=== PATIENT | female | born 1945 | race Hispanic/Latino ===

== ENCOUNTER 2017-09-07 23:32 | Inpatient (IN) | payer OTHER ==
[2017-09-08 00:19] LABS: Absolute Lymphocytes (CBC) 1.1 K/uL (0.7-4.9); Absolute Monocytes 0.4 K/uL (0.1-1.3); Absolute Neutrophil 5.9 K/uL (1.8-8.0); MCH 30.1 pg (27.0-35.0); RBC Red Blood Cell Count 1.93 M/uL (3.86-4.86)
[2017-09-08 00:29] LABS: Basophils % 0.5 % (0-1.3); Eosinophils % 0.5 % (0-4.4); Lymphocytes % 14.6 % (15.3-44.8); MCV 91.5 fL (80-100); MPV 8.8 fL (7.6-11.3); Monocytes % 5.6 % (3.3-12.3)
[2017-09-08 00:31] LABS: Hematocrit 17.6 % (36.0-45.0)
[2017-09-08 00:40] LABS: ALT/SGPT 12 U/L (12-78); AST/SGOT 13 U/L (15-37); Albumin 2.9 g/dL (3.4-5.0); Alkaline Phosphatase 55 U/L (45-117); BUN Blood Urea Nitrogen 31 mg/dL (7-18); Bicarbonate 21 mmol/L (21-32); Bilirubin Direct < 0.1 mg/dL (0-0.2); Bilirubin Total 0.2 mg/dL (0.2-1.0); Glucose Level 191 mg/dL (74-106); Lipase 82 U/L (73-393); Potassium 4.3 mmol/L (3.5-5.1); Sodium Level 145 mmol/L (136-145)
[2017-09-08] MEDS ORDERED: NA CHLORIDE 0.9% 1,000 ML ONE (01:39)
[2017-09-08 01:54] LABS: Protime INR 1.07
[2017-09-08] MEDS ORDERED: NA CHLORIDE 0.9% 250 ML ONE (02:00)
--- NOTE | 2017-09-08 02:06 | EDPHYS ---
Physician Documentation [facility] Name: Cici Perez Age: 72 yrs Sex: Female : 1945 Arrival Date: 09/07/2017 Time: 23:44 Bed 7 Private MD: ED Physician Mono Carlos HPI: 09/08 01:54 This 72 yrs old Female presents to ER via EMS with unknown complaint. gs 01:54 The patient presents to the emergency department with rectal bleeding, a moderate gs amount. Onset: The symptoms/episode began/occurred yesterday. Abdominal pain: none is appreciated. Modifying factors: The symptoms are alleviated by nothing, the symptoms are aggravated by nothing. Associated signs and symptoms: Pertinent negatives: fever. Severity of symptoms: At their worst the symptoms were moderate in the emergency department the symptoms are unchanged. The patient has experienced similar episodes in the past, several times. The patient has been recently seen by a physician: colonoscopy last week has polyps cautery performed at [facility].. Historical: - Allergies: 09/07 23:50 Codeine; lp1 - Home Meds: 23:50 amlodipine 5 mg tab 1 tab once daily [Active]; docusate sodium 100 mg Oral cap 1 cap 2 lp1 times per day [Active]; aspirin 81 mg Oral chew 1 tab once daily [Active]; atorvastatin 80 mg Oral tab 1 tab nightly [Active]; cilostazol 100 mg oral tab daily [Active]; levocetirizine 5 mg oral tab 1 tab once daily [Active]; metoprolol tartrate 25 mg Oral tab 0.5 tab 2 times per day [Active]; - PMHx: 23:50 Diabetes - NIDDM; High Cholesterol; Hypertension; lp1 - PSHx: 23:50 Aneurysm repair; Hernia repair; Cholecystectomy; Appendectomy; lp1 - Immunization history:: Adult Immunizations up to date. - Social history:: Smoking status: Patient uses tobacco products, smokes one-half pack cigarettes per day. - Ebola Screening: : No symptoms or risks identified at this time. ROS: 09/08 01:59 All other systems are negative. gs Exam: 01:59 Head/Face: Normocephalic, atraumatic. Eyes: Pupils equal round and reactive to light, gs extra-ocular motions intact. Lids and lashes normal. Conjunctiva and sclera are non-icteric and not injected. Cornea within normal limits. Periorbital areas with no swelling, redness, or edema. ENT: Nares patent. No nasal discharge, no septal abnormalities noted. Tympanic membranes are normal and external auditory canals are clear. Oropharynx with no redness, swelling, or masses, exudates, or evidence of obstruction, uvula midline. Mucous membranes moist. Neck: Trachea midline, no thyromegaly or masses palpated, and no cervical lymphadenopathy. Supple, full range of motion without nuchal rigidity, or vertebral point tenderness. No Meningismus. Chest/axilla: Normal chest wall appearance and motion. Nontender with no deformity. No lesions are appreciated. Cardiovascular: Regular rate and rhythm with a normal S1 and S2. No gallops, murmurs, or rubs. Normal PMI, no JVD. No pulse deficits. Respiratory: Lungs have equal breath sounds bilaterally, clear to auscultation and percussion. No rales, rhonchi or wheezes noted. No increased work of breathing, no retractions or nasal flaring. Abdomen/GI: Soft, non-tender, with normal bowel sounds. No distension or tympany. No guarding or rebound. No evidence of tenderness throughout. Back: No spinal tenderness. No costovertebral tenderness. Full range of motion. Skin: Warm, dry with normal turgor. Normal color with no rashes, no lesions, and no evidence of cellulitis. MS/ Extremity: Pulses equal, no cyanosis. Neurovascular intact. Full, normal range of motion. Neuro: Awake and alert, GCS 15, oriented to person, place, time, and situation. Cranial nerves II-XII grossly intact. Motor strength 5/5 in all extremities. Sensory grossly intact. Cerebellar exam normal. Normal gait. 01:59 Constitutional: The patient appears alert, awake. Vital Signs: 09/07 23:47 BP 143 / 81; Pulse 88; Resp 18; Temp 98.4(O); Pulse Ox 100% on R/A; Weight 61.23 kg; lp1 Height 5 ft. 4 in. (162.56 cm); Pain 0/10; 09/08 01:03 BP 147 / 79; Pulse 81; Resp 14; Pulse Ox 99% on R/A; Pain 0/10; ao 02:20 BP 170 / 63; Pulse 86; Resp 18; Temp 98.8(TE); Pulse Ox 100% on R/A; Pain 0/10; ao 03:20 BP 159 / 79; Pulse 76; Resp 18; Temp 97.6(TE); Pulse Ox 100% on R/A; Pain 0/10; ao 09/07 23:47 Body Mass Index 23.17 (61.23 kg, 162.56 cm) lp1 MDM: 09/07 23:58 Patient medically screened. 09/08 01:59 Differential diagnosis: gastritis, diverticulitis, hemorrhoids, hemorrhagic shock. Data reviewed: vital signs, nurses notes. Response to treatment: the patient's symptoms have mildly improved after treatment, and as a result, I will admit patient. 02:06 ED course: discussed kathleen, pt wants to stay as her gi not available at [facility] [place]. 09/07 23:58 Order name: Basic Metabolic Panel; Complete Time: 01:57 09/07 23:58 Order name: CBC with Diff; Complete Time: 01:57 09/07 23:58 Order name: Hepatic Function; Complete Time: 01:57 09/07 23:58 Order name: Lipase; Complete Time: 01:57 09/07 23:58 Order name: Urine Microscopic Only 09/07 23:58 Order name: Type And Screen 09/08 01:06 Order name: PT-INR 09/08 01:07 Order name: Protime (+INR); Complete Time: 01:57 [facility] 09/08 01:14 Order name: ABO/RH no charge; Complete Time: 01:57 [facility] 09/08 01:15 Order name: Packed RBC Leukored -1 EDKY 09/08 01:57 Order name: CT Stone Protocol 09/07 23:58 Order name: IV Saline Lock; Complete Time: 00:56 09/07 23:58 Order name: Labs collected and sent; Complete Time: 00:56 Administered Medications: 01:53 Drug: NS 0.9% 1000 ml Route: IV; Rate: 125 ml/hr; Site: right forearm; ao 04:39 Follow up: IV Status: Infusion continued upon admission ao 02:16 Drug: Zofran 4 mg Route: IVP; Site: right forearm; ao 04:39 Follow up: Response: No adverse reaction ao 02:20 Drug: fentaNYL (PF) 25 mcg Route: IVP; Site: right forearm; ao 04:39 Follow up: Response: No adverse reaction; Pain is decreased ao Disposition: 09/08/17 02:05 Hospitalization ordered by Roney Mckinney for Inpatient Admission. Preliminary diagnosis is Gastrointestinal hemorrhage, unspecified. - Bed requested for Telemetry/MedSurg (Inpatient). - Status is Inpatient Admission. ao - Condition is Stable. - Problem is new. - Symptoms are unchanged. UTI on Admission? No Critical care time excluding procedures: 02:06 Critical care time: Bedside Care: 10 minutes, Consultation: 10 minutes, Family gs Intervention: 10 minutes. Total time: 30 minutes Signatures: Dispatcher [employer] EDCharlette Solano RN RN Brittany Madison RN RN lp1 Tom Carvajal RN Mono العلي MD MD gs Corrections: (The following items were deleted from the chart) 03:43 02:05 Hospitalization Ordered by Roney Mckinney MD for Inpatient Admission. Preliminary kl diagnosis is Gastrointestinal hemorrhage, unspecified. Bed requested for Telemetry/MedSurg (Inpatient). Status is Inpatient Admission. Condition is Stable. Problem is new. Symptoms are unchanged. UTI on Admission? No. gs 04:36 03:43 09/08/2017 02:05 Hospitalization Ordered by Roney Mckinney MD for Inpatient ao Admission. Preliminary diagnosis is Gastrointestinal hemorrhage, unspecified. Bed requested for Telemetry/MedSurg (Inpatient). Status is Inpatient Admission. Condition is Stable. Problem is new. Symptoms are unchanged. UTI on Admission? No. kl
--- NOTE | 2017-09-08 02:06 | ER ---
Nurse's Notes [facility] Name: Cici Perez Age: 72 yrs Sex: Female : 1945 Arrival Date: 09/07/2017 Time: 23:44 Bed 7 Private MD: Diagnosis: Gastrointestinal hemorrhage, unspecified Presentation: 09/07 23:45 Presenting complaint: EMS states: Rectal bleeding x 3 days; Colonoscopy 1 week ago in [address] [place]; States hx of rectal bleeding. Transition of care: patient was not received from another setting of care. Onset of symptoms was September 07, 2017. Risk Assessment: Do you want to hurt yourself or someone else? Patient reports no desire to harm self or others. Initial Sepsis Screen: Does the patient meet any 2 criteria? No. Patient's initial sepsis screen is negative. Does the patient have a suspected source of infection? No. Patient's initial sepsis screen is negative. Care prior to arrival: None. 23:45 Method Of Arrival: EMS: [facility] 23:45 Acuity: SANDIE 3 lp1 Historical: - Allergies: 23:50 Codeine; lp1 - Home Meds: 23:50 amlodipine 5 mg tab 1 tab once daily [Active]; docusate sodium 100 mg Oral cap 1 cap 2 lp1 times per day [Active]; aspirin 81 mg Oral chew 1 tab once daily [Active]; atorvastatin 80 mg Oral tab 1 tab nightly [Active]; cilostazol 100 mg oral tab daily [Active]; levocetirizine 5 mg oral tab 1 tab once daily [Active]; metoprolol tartrate 25 mg Oral tab 0.5 tab 2 times per day [Active]; - PMHx: 23:50 Diabetes - NIDDM; High Cholesterol; Hypertension; lp1 - PSHx: 23:50 Aneurysm repair; Hernia repair; Cholecystectomy; Appendectomy; lp1 - Immunization history:: Adult Immunizations up to date. - Social history:: Smoking status: Patient uses tobacco products, smokes one-half pack cigarettes per day. - Ebola Screening: : No symptoms or risks identified at this time. Screenin:50 Abuse screen: Denies threats or abuse. Denies injuries from another. Nutritional lp1 screening: No deficits noted. Tuberculosis screening: No symptoms or risk factors identified. 09/08 00:17 Fall Risk None identified. ao Assessment: 00:05 General: Appears in no apparent distress. comfortable, Behavior is calm, cooperative, ao appropriate for age. Pain: Denies pain. Neuro: Level of Consciousness is awake, alert, obeys commands, Oriented to person, place, time, situation, Appropriate for age Moves all extremities. Full function Speech is normal, Facial symmetry appears normal. Cardiovascular: Capillary refill < 3 seconds Patient's skin is warm and dry. Respiratory: Airway is patent Respiratory effort is even, unlabored, Respiratory pattern is regular, symmetrical. GI: Abdomen is non-distended. GI: Reports Bloody stools. : No signs and/or symptoms were reported regarding the genitourinary system. EENT: No signs and/or symptoms were reported regarding the EENT system. Derm: Skin is intact, Skin is pink, warm \T\ dry. normal, Skin temperature is warm. Musculoskeletal: Circulation, motion, and sensation intact. Range of motion: intact in all extremities. 01:03 Reassessment: Patient appears in no apparent distress at this time. No changes from ao previously documented assessment. Patient and/or family updated on plan of care and expected duration. Pain level reassessed. Patient is alert, oriented x 3, equal unlabored respirations, skin warm/dry/pink. Patient to get blood. Dr Carlos has talk to patient about the possibility of an admission or transferred to [facility]. 02:20 Reassessment: Patient appears in no apparent distress at this time. Patient and/or ao family updated on plan of care and expected duration. Pain level reassessed. Started blood transfusion. See paper chart for documentation. 03:23 Reassessment: Patient appears in no apparent distress at this time. Patient and/or ao family updated on plan of care and expected duration. Pain level reassessed. Patient back from CT. Patient currently with blood ruining. Vital Signs: 09/07 23:47 BP 143 / 81; Pulse 88; Resp 18; Temp 98.4(O); Pulse Ox 100% on R/A; Weight 61.23 kg; lp1 Height 5 ft. 4 in. (162.56 cm); Pain 0/10; 09/08 01:03 BP 147 / 79; Pulse 81; Resp 14; Pulse Ox 99% on R/A; Pain 0/10; ao 02:20 BP 170 / 63; Pulse 86; Resp 18; Temp 98.8(TE); Pulse Ox 100% on R/A; Pain 0/10; ao 03:20 BP 159 / 79; Pulse 76; Resp 18; Temp 97.6(TE); Pulse Ox 100% on R/A; Pain 0/10; ao 09/07 23:47 Body Mass Index 23.17 (61.23 kg, 162.56 cm) lp1 ED Course: 09/07 23:44 Patient arrived in ED. lp1 23:44 Mono Carlos MD is Attending Physician. gs 23:47 Triage completed. lp1 23:47 Arm band placed on left wrist. lp1 09/08 00:02 Tom Carvajal RN is Primary Nurse. ao 00:05 Inserted saline lock: 20 gauge in right forearm, using aseptic technique. Blood ao collected. 00:17 Patient has correct armband on for positive identification. Pulse ox on. NIBP on. ao 00:31 Notified ED physician of a critical lab result(s). hgb of 5.8 and hct of 17.6. 02:02 Roney Mckinney MD is Hospitalizing Provider. gs 02:34 Radiology exam delayed due to Patient is receiving treatment at this time. kw1 03:19 CT completed. Patient tolerated procedure well. Patient moved back from CT. kw1 03:21 Packed RBC Leukored -1 Sent. ao 04:34 No provider procedures requiring assistance completed. Patient admitted, IV remains in ao place. Administered Medications: 01:53 Drug: NS 0.9% 1000 ml Route: IV; Rate: 125 ml/hr; Site: right forearm; ao 04:39 Follow up: IV Status: Infusion continued upon admission ao 02:16 Drug: Zofran 4 mg Route: IVP; Site: right forearm; ao 04:39 Follow up: Response: No adverse reaction ao 02:20 Drug: fentaNYL (PF) 25 mcg Route: IVP; Site: right forearm; ao 04:39 Follow up: Response: No adverse reaction; Pain is decreased ao Outcome: 02:05 Decision to Hospitalize by Provider. gs 04:34 Admitted to Tele accompanied by nurse, room 410, with chart, Other Blood transfusion ao completed arrival Report called to MARLEEN Mayorga 04:34 Condition: stable 04:34 Instructed on the need for admit. 04:36 Patient left the ED. ao Signatures: Chretien, Janeth, RN RN Brittany Mullen RN RN lp1 Tom Carvajal RN RN ao Mono Carlos MD MD Charlette Smallwood kw1 Corrections: (The following items were deleted from the chart) 03:25 02:20 BP 159 / 79; Pulse 76bpm; Resp 18bpm; Pulse Ox 100% RA; Temp 97.6F Temporal; Pain ao 0/10; ao
[2017-09-08] MEDS ORDERED: FENTANYL CITR 100 MCG/2 ML ONE (02:12)
[2017-09-08] MEDS ORDERED: ONDANSETRON 4 MG/2 ML VIAL ONE (02:19)
--- NOTE | 2017-09-08 04:11 | P.HP ---
Certification for Inpatient Patient admitted to: Inpatient With expected LOS: >2 Midnights Practitioner: I am a practitioner with admitting privileges, knowledge of patient current condition, hospital course, and medical plan of care. Services: Services provided to patient in accordance with Admission requirements found in Title 42 Section 412.3 of the Code of Federal Regulations Patient History Date of Service: 09/08/17 Reason for admission: lower GIB History of Present Illness: Ms Perez is a 72-year-old woman with history of hypertension, dyslipidemia, noninsulin dependent diabetes mellitus, who about 3 weeks ago had a colonoscopy done at [facility], according to the patient, she had removed a polyp. As complication of colonoscopy, the patient had rectal bleeding, requiring another colonoscopy, without finding the source of bleeding. A third colonoscopy was done and finally a an area of bleeding was found, and after catheterizes it, the bleeding stopped. Unfortunately, about 2 days ago, she started bleeding the again. She thought that it could be remnant from the last time she was bleeding, however this morning, she started feeling dizzy and weak, and subsequently came to ED for farther evaluation. She denied any chest pain or shortness of breath at this time. Laboratory work shows hemoglobin of 5.8 and hematocrit 17.6. BUN and creatinine are also elevated. Allergies codeine [Codeine] Allergy (Verified 04/08/11 18:26) Hives - Past Medical/Surgical History Diabetic: Yes -: diabetes mellitus -: Hypertension -: Dyslipidemia -: aneurism repair -: Hernia repair -: Cholecystectomy -: Appendectomy - Family History Family History: Reviewed- Non-Contributory - Social History Smoking Status: Current some day smoker Counseled patient to stop smoking for: less than 10 minutes Smoking therapy provided: Yes Patient receptive to therapy: No Alcohol use: Yes CD- Drugs: No Place of Residence: Home Review of Systems 10-point ROS is otherwise unremarkable Physical Examination - Physical Exam General: Alert, In no apparent distress, Other (Pale) HEENT: Atraumatic, PERRLA, Mucous membr. moist/pink, EOMI, Sclerae nonicteric Neck: Supple, 2+ carotid pulse no bruit, No LAD, Without JVD or thyroid abnormality Respiratory: Clear to auscultation bilaterally, Normal air movement Cardiovascular: Regular rate/rhythm, Normal S1 S2, Systolic murmur (3/6 in aortic area ) Gastrointestinal: Normal bowel sounds, No tenderness Musculoskeletal: No tenderness Integumentary: No rashes Neurological: Normal speech, Normal strength at 5/5 x4 extr, Normal tone, Normal affect Lymphatics: No axilla or inguinal lymphadenopathy - Studies Laboratory Data (last 24 hrs) 09/08/17 01:28: PT 12.6 H, INR 1.07 09/08/17 00:10: WBC 7.6, Hgb 5.8 L*, Hct 17.6 L*, Plt Count 272 09/08/17 00:10: Sodium 145, Potassium 4.3, BUN 31 H, Creatinine 1.00, Glucose 191 H, Total Bilirubin 0.2, AST 13 L, ALT 12, Alkaline Phosphatase 55, Lipase 82 Assessment and Plan - Problems (Diagnosis) (1) Acute blood loss anemia Current Visit: Yes Status: Acute (2) Lower GI bleed Current Visit: Yes Status: Acute (3) Diabetes mellitus Current Visit: Yes Status: Acute Qualifiers: Diabetes mellitus type: type 2 Diabetes mellitus residential insulin use: without residential use Diabetes mellitus complication status: with unspecified complications Qualified Code(s): E11.8 - Type 2 diabetes mellitus with unspecified complications (4) Acute renal injury Current Visit: Yes Status: Acute - Plan The patient will be admitted to the hospital due to lower GI bleed. She will have at least 2 units of PRBC transfusion due to acute blood lose anemia. Will keep her NPO, give her IV fluids, consult GI specialist. The patient remained hemodynamically stable. - Advance Directives Does patient have a Living Will: No Does patient have a Durable POA for Healthcare: No - Code Status/Comfort Care Code Status Assessed: Yes Code Status: Full Code
[2017-09-08] MEDS ORDERED: NA CHLORIDE 0.9% 1,000 ML IV SCH (04:37)
[2017-09-08] MEDS ORDERED: ACETAMINOPHEN 500 MG TAB PO PRN (04:37)
[2017-09-08] MEDS ORDERED: ONDANSETRON 4 MG/2 ML VIAL IV PRN (04:37)
[2017-09-08] MEDS ORDERED: NA CHLORIDE 0.9% 100 ML ONE (05:09)
[2017-09-08 05:46] LABS: Absolute Lymphocytes (CBC) 0.7 K/uL (0.7-4.9); Absolute Monocytes 0.4 K/uL (0.1-1.3); Absolute Neutrophil 8.2 K/uL (1.8-8.0); Basophils % 0.3 % (0-1.3); Hematocrit 21.5 % (36.0-45.0); Lymphocytes % 7.2 % (15.3-44.8); MCH 28.7 pg (27.0-35.0); MCV 83.7 fL (80-100); MPV 8.6 fL (7.6-11.3); RBC Red Blood Cell Count 2.57 M/uL (3.86-4.86)
[2017-09-08 05:48] LABS: Bilirubin Total 0.5 mg/dL (0.2-1.0); Potassium 4.2 mmol/L (3.5-5.1); Protein, Total 6.1 g/dL (6.4-8.2)
[2017-09-08 06:38] LABS: Anisocytosis 2+; Blood Morphology Comment NOTED (NOT SEEN); Platelet Estimate ADEQ; Poikilocytosis 1+; Urine White Blood Cell Casts OK
[2017-09-08] MEDS ORDERED: SODIUM CHLORIDE 0.9% 10ML INJ IV PRN (06:50)
[2017-09-08] MEDS: INSULIN -REGULAR HUMAN 50 UNIT/0.5 ML ML SQ SCH ×4 (07:30→21:00)
[2017-09-08] MEDS ORDERED: CILOSTAZOL 100 MG TAB PO SCH (09:00)
--- NOTE | 2017-09-08 09:08 | RAD REPORT ---
EXAM DESCRIPTION: CT - Stone Protocol - 09/08/2017 6:02 am CLINICAL HISTORY: Abdominal pain, rectal bleeding, prior cholecystectomy and appendectomy, prior her nan repair and prior aneurysm repair A preliminary written report was provided at the time of the study, and the report was reviewed prio r to final dictation. COMPARISON: CT imaging June 12 TECHNIQUE: Axial [address] imaging of the abdomen and pelvis was performed without IV contrast. No IV contrast was given because of allergy, abnormal renal function, patient refusal or physician re quest. No oral contrast was given. All CT scans are performed using dose optimization technique as appropriate and may include automated exposure control or mA/KV adjustment according to patient size. FINDINGS: No acute lung base findings. No pericardial thickening or effusion. The liver, spleen and pancreas show no suspicious findings on non-contrast imaging. Gallbladder is ab sent. No intrahepatic abnormal dilatation. Extrahepatic biliary tree is prominent but within normal l imits for a post cholecystectomy patient. No hydronephrosis or suspicious renal mass. Bilateral renal cysts are present. Hyperdense mass ophthalmic nurse ior mid left kidney is believed to be high protein content cyst. This is similar to comparison. No si gnificant adrenal finding. Isodense renal masses and pyelonephritis cannot be excluded in the absence of IV contrast. The urinary bladder is without significant finding. No uterine abnormality. Ovaries are atrophic. No adnexal mass. No gastric dilatation or wall thickening. Fluid fills the stomach. No dilated small bowel loops. Mild left-sided diverticulosis is present. No colon wall thickening or mass clearly defined. Areas of per istalsis are evident. No free air, free fluid or inflammatory stranding. No hernia, mass or bulky lym phadenopathy. Disc and bony degenerative changes are present. No pathologic bone process. Aortic atherosclerotic changes are present. Endovascular graft is present. Vascular assessment is meyers ited in the absence of contrast. IMPRESSION: Non-contrast enhanced CT abdomen and pelvis imaging show no significant or suspicious fi nding. Left-sided diverticulosis without diverticulitis or clearly defined mass. Colonoscopy would be needed if the patient has continued, unexplained rectal bleeding. Full assessment is limited is the absence of IV contrast.
[2017-09-08 09:29] LABS: Hematocrit 23.9 % (36.0-45.0)
[2017-09-08] MEDS: AMLODIPINE 5 MG TAB PO SCH (09:47)
[2017-09-08] MEDS: METOPROLOL TAR 25 MG TAB PO SCH ×2 (09:47→21:04)
[2017-09-08] MEDS: PANTOPRAZOLE 40 MG INJ IVP SCH ×2 (09:48→21:04)
--- NOTE | 2017-09-08 09:59 | P.PN ---
Subjective Date of Service: 09/08/17 Primary Care Provider: Dr. Ba; GI-[facility] [place] Chief Complaint: lower GIB Subjective: Other (Patient feeling better. She is on her 2nd unit of blood.) Physical Examination - Vital Signs Temperature: 97.7 F Blood Pressure: 163/56 Pulse: 70 Respirations: 18 Pulse Ox (%): 100 - Physical Exam General: Alert, In no apparent distress, Oriented x3, Cooperative HEENT: Atraumatic Neck: Supple Respiratory: Clear to auscultation bilaterally, Normal air movement Cardiovascular: Normal pulses, Regular rate/rhythm Gastrointestinal: Normal bowel sounds, Soft and benign, Non-distended, No tenderness, No masses, No rebound, No guarding Musculoskeletal: No erythema, No tenderness, No warmth Integumentary: No tenderness/swelling, No erythema, No warmth, No cyanosis Neurological: Normal speech, Normal strength at 5/5 x4 extr, Normal tone, Normal affect - Studies Laboratory Data (last 24 hrs) 09/08/17 01:28: PT 12.6 H, INR 1.07 09/08/17 00:10: WBC 7.6, Hgb 5.8 L*, Hct 17.6 L*, Plt Count 272 09/08/17 00:10: Sodium 145, Potassium 4.3, BUN 31 H, Creatinine 1.00, Glucose 191 H, Total Bilirubin 0.2, AST 13 L, ALT 12, Alkaline Phosphatase 55, Lipase 82 Medications List Reviewed: Yes Assessment & Plan - Problems (Diagnosis) (1) Hypertension Current Visit: Yes Status: Chronic Plan: Will continue with her medication. Will hold if blood pressure less than 120 systolic. Patient admitted for GI bleed. Patient seen at [facility] for colonoscopy. It appears that the patient had a polypectomy. After procedure 1 week later she developed bleeding. She had 2 colonoscopies at that time. Bleeding was contained. Patient with more bleeding. Patient severely anemic. Patient requires 2 units of blood. Will monitor hemoglobin closely. Patient was to be transferred last night but not able 2. Patient desires stay here. ER discussed case with GI. GI to assess patient today. I will go over the plan of care with Dr. Penaloza who will take over tomorrow. Qualifiers: Hypertension type: essential hypertension Qualified Code(s): I10 - Essential (primary) hypertension (2) Hyperlipidemia Current Visit: Yes Status: Chronic Plan: Will continue with her medication Qualifiers: Hyperlipidemia type: unspecified Qualified Code(s): E78.5 - Hyperlipidemia , unspecified (3) Colonoscopy causing post-procedural bleeding Current Visit: Yes Status: Acute Plan: Patient had colonoscopy within the past 2-3 weeks. Patient had bleeding thereafter requiring 2 more colonoscopies to stop bleeding. Patient came in yesterday with bleeding and severe anemia. ER tried to transfer patient to [facility] [place]. They were not successful. Patient prefers to remain here. ER consulted and spoke with GI last night. Patient currently getting 2 units of blood. Will reassess thereafter. Will monitor for bleeding. Will discuss case with GI. Will obtain records from [facility] [place]. (4) Acute blood loss anemia Onset Date: 09/08/17 Current Visit: Yes Status: Acute Plan: Continue as above. Patient getting transfused. (5) Acute renal injury Onset Date: 09/08/17 Current Visit: Yes Status: Acute Plan: Likely from anemia and dehydration. Will continue with IV fluids (6) Diabetes mellitus Onset Date: 09/08/17 Current Visit: Yes Status: Chronic Plan: Will provide sliding scale. Will monitor closely Qualifiers: Diabetes mellitus type: type 2 Diabetes mellitus long-term insulin use: without long-term use Diabetes mellitus complication status: with unspecified complications Qualified Code(s): E11.8 - Type 2 diabetes mellitus with unspecified complications (7) Lower GI bleed Onset Date: 09/08/17 Current Visit: Yes Status: Acute Plan: Secondary to above. Will monitor closely. (8) GERD (gastroesophageal reflux disease) Current Visit: Yes Status: Suspected Plan: Will start protonix Qualifiers: Esophagitis presence: esophagitis presence not specified Qualified Code(s) : K21.9 - Gastro-esophageal reflux disease without esophagitis Discharge Plan: Home Plan to discharge in: 48 Hours Time Spent Managing Pts Care (In Minutes): 55
[2017-09-08] MEDS: NA CHLORIDE 0.9% 1,000 ML IV SCH ×2 (10:00→16:18)
[2017-09-08] MEDS ORDERED: METOCLOPRAMIDE 10 MG/2mL INJ IV SCH (11:00)
[2017-09-08] MEDS ORDERED: MAGNESIUM CITRATE 300 ML BOT PO SCH ×2 (13:00→18:00)
[2017-09-08] MEDS ORDERED: GOLYTELY 4000 ML PO SCH ×2 (14:00→19:00)
[2017-09-08 16:17] LABS: Hematocrit 22.4 % (36.0-45.0)
[2017-09-08] MEDS: METOCLOPRAMIDE 10 MG/2mL INJ IV SCH (18:42)
[2017-09-08 19:57] LABS: Hematocrit 25.5 % (36.0-45.0)
[2017-09-08] MEDS: ATORVASTATIN 80 MG TAB PO SCH (21:04)
[2017-09-09] MEDS: METOCLOPRAMIDE 10 MG/2mL INJ IV SCH ×2 (00:20→06:11)
[2017-09-09] MEDS: NA CHLORIDE 0.9% 1,000 ML IV SCH ×3 (00:20→16:00)
[2017-09-09 06:28] LABS: Absolute Lymphocytes (CBC) 1.3 K/uL (0.7-4.9); Absolute Monocytes 0.4 K/uL (0.1-1.3); Absolute Neutrophil 3.9 K/uL (1.8-8.0); Basophils % 0.4 % (0-1.3); Eosinophils % 2.2 % (0-4.4); Hematocrit 20.8 % (36.0-45.0); MCH 28.8 pg (27.0-35.0); MCV 83.8 fL (80-100); MPV 8.5 fL (7.6-11.3); Monocytes % 7.5 % (3.3-12.3); RBC Red Blood Cell Count 2.48 M/uL (3.86-4.86)
[2017-09-09] MEDS: INSULIN -REGULAR HUMAN 50 UNIT/0.5 ML ML SQ SCH ×4 (07:30→20:52)
[2017-09-09 07:55] LABS: Albumin 2.7 g/dL (3.4-5.0); Bilirubin Total 0.4 mg/dL (0.2-1.0); Magnesium 2.4 mg/dL (1.8-2.4); Potassium 3.6 mmol/L (3.5-5.1); Protein, Total 5.5 g/dL (6.4-8.2); Thyroid Stimulating Hormone 2.35 uIU/mL (0.36-3.74)
[2017-09-09] MEDS: AMLODIPINE 5 MG TAB PO SCH (09:25)
[2017-09-09] MEDS: METOPROLOL TAR 25 MG TAB PO SCH ×2 (09:26→20:53)
[2017-09-09] MEDS: PANTOPRAZOLE 40 MG INJ IVP SCH ×2 (09:26→20:55)
[2017-09-09] MEDS ORDERED: NA CHLORIDE 0.9% 250 ML ONE (09:59)
[2017-09-09] MEDS ORDERED: POTASSIUM CL SA 10 MEQ TAB PO ONE (10:07)
[2017-09-09] MEDS ORDERED: PROPOFOL 200 MG/20 ML VIAL IV ONE ×2 (11:45→11:46)
[2017-09-09] MEDS ORDERED: LIDOCAINE 1% MPF 2 ML AMPULE ONE (11:46)
[2017-09-09] MEDS ORDERED: NA CHLORIDE 0.9% 50 ML ONE (14:04)
--- NOTE | 2017-09-09 14:04 | ENDO RPT ---
[address], [address] COLONOSCOPY PROCEDURE REPORT EXAM DATE: 09/09/2017 PATIENT NAME: Cici Perez MR #: [id number] BIRTHDATE: 1945 ATTENDING: Michael Lin Dr STATUS: inpatient BI TESTER: Cici Villareal RN and Evelyne Ferreira RN INDICATIONS: The patient is a 72 yr old Female here for a colonoscopy due to hematochezia and anemia PROCEDURE PERFORMED: Colonoscopy with biopsy and Colonoscopy with biopsy - cold polypectomy MEDICATIONS: Per Anesthesia. ESTIMATED BLOOD LOSS: Minimal CONSENT: The patient understands the risks and benefits of the procedure and understands that these risks include, but are not limited to: sedation, allergic reaction, infection, perforation and/or bleeding. Alternative means of evaluation and treatment include, among others: physical exam, x-rays, and/or surgical intervention. The patient elects to proceed with this endoscopic procedure. DESCRIPTION OF PROCEDURE: During intra-op preparation period all mechanical medical equipment was checked for proper function. Hand hygiene and appropriate measures for infection prevention was taken. Procedure, possible complications, alternatives including, but not limited to possibility of bleeding, perforation, tear, infection, sepsis, need for surgery, need for blood transfusion, were explained to the patient. After the risks, benefits and alternatives of the procedure were thoroughly explained, Informed consent was verified, confirmed and timeout was successfully executed by the treatment team. The patient was placed in the left lateral position. A digital rectal exam was performed and revealed no abnormalities of the rectum. After appropriate level of anesthesia, the scope was passed. The EC-[id number] ([id number]) endoscope was introduced through the anus and advanced to the terminal ileum which was intubated for a short distance. The quality of the prep was fair. The instrument was then slowly withdrawn as the colon was fully examined. Scope withdrawal time was 9 minutes. COLON FINDINGS: A sessile polyp measuring 2 mm in size was found in the ascending colon. A polypectomy was performed with cold forceps. A sessile polyp measuring 3 mm in size was found in the rectum. A polypectomy was performed with cold forceps. A single non-bleeding, deep, irregular shaped and clean-based ulcer ranging between 5-9mm in size with heaped up edges was found in the ascending colon. Multiple large non-bleeding, serpiginous, deep and clean-based ulcers with surrounding edema and heaped up edges were found in the sigmoid colon. A single non-bleeding, irregular shaped, deep and clean-based ulcer measuring 7 x 4mm in size was found in the sigmoid colon. Random biopsies of the terminal ileum / right colon / left colon / sigmoid colitis 5 cm area / rectum obtained. Moderate sized internal hemorrhoids were found. Retroflexed views revealed medium hemorrhoids. The scope was then completely withdrawn from the patient and the procedure terminated. ADVERSE EVENTS: There were no complications. IMPRESSIONS: 1. 2 mm sessile polyp in the ascending colon; polypectomy was performed with cold forceps 2. 3 mm sessile polyp in the rectum; polypectomy was performed with cold forceps 3. 9 mm single ulcer in the distal ascending colon 4. Multiple large 0.6 to 2 cm clean-based serpiginous ulcers with surrounding colitis (inflammation / erythema/edema/loss of vascular pattern) 4-5 cm long in the sigmoid colon 5. 7 X 4 mm clean-based ulcer in the distal sigmoid colon 6. Random biopsies of the terminal ileum / right colon / left colon / sigmoid colitis 5 cm area / rectum obtained 7. Moderate sized internal hemorrhoids 8. Intubation to terminal ileum RECOMMENDATIONS: 1. await biopsy results 2. avoid NSAIDS 3. Small Bowel Follow Through 4. pillcam / capsule endoscopy RECALL: Return in 3 month(s) await pathology, small bowel series, pillcam, and [facility] labs -> possible Crohn's disease Michael Lin Dr eSigned: Michael Lin Dr 09/09/2017 12:53 PM cc: CPT CODES: ICD9 CODES: 1. 569.82 Ulceration of intestine 2. 211.3 Benign neoplasm of colon 3. 569.0 Anal and rectal polyp PATIENT NAME: Cici Perez MR#: [id number]
--- NOTE | 2017-09-09 16:21 | P.PN ---
Subjective Date of Service: 09/09/17 Primary Care Provider: Dr. Ba; [facility] Chief Complaint: lower GIB Patient seen and examined at bedside with RN. Chart reviewed. Case discussed with GI. Patient is currently scheduled for a EGD and colonoscopy this morning. No complaints of her overnight. Will the 0.1 this morning. Patient will be given 2 units of blood transfusion today. Review of Systems General: As per HPI Physical Examination - Vital Signs Temperature: 97.7 F Blood Pressure: 141/53 Pulse: 65 Respirations: 15 Pulse Ox (%): 97 - Physical Exam General: Alert, In no apparent distress HEENT: Atraumatic, PERRLA, EOMI Neck: Supple, JVD not distended Respiratory: Clear to auscultation bilaterally, Normal air movement Cardiovascular: Regular rate/rhythm, Normal S1 S2 Gastrointestinal: Normal bowel sounds, No tenderness Musculoskeletal: No tenderness Integumentary: No rashes Neurological: Normal speech, Normal tone, Normal affect Lymphatics: No axilla or inguinal lymphadenopathy - Studies Medications List Reviewed: Yes Assessment & Plan - Problems (Diagnosis) (1) Lower GI bleed Onset Date: 09/08/17 Current Visit: Yes Status: Acute Plan: Lower GI bleeding most likely secondary to colonoscopy related bleeding since 2 weeks ago. Patient had a polypectomy done and continued to have acute blood loss anemia and was seen again by GI and had a repeat Colonoscopy. Pt now again with Lower GI bleeding. -hemoglobin today is 7.1. Was transfused 2 units of packed RBCs. H&H q.6 hr. -GI consulted. Appreciated recommendations at this time. Patient is scheduled for EGD and colonoscopy today. -IV fluids at this time. Will continue to monitor closely. (2) Acute renal injury Onset Date: 09/08/17 Current Visit: Yes Status: Acute Plan: Acute kidney injury 1 is secondary to hypovolemia. IV fluids at this time. Continue to monitor closely. BUN and creatinine improved today. 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: without fci use Diabetes mellitus complication status: with unspecified complications Qualified Code(s): E11.8 - Type 2 diabetes mellitus with unspecified complications (4) Hyperlipidemia Current Visit: Yes Status: Chronic Qualifiers: Hyperlipidemia type: unspecified Qualified Code(s): E78.5 - Hyperlipidemia , unspecified (5) Hypertension Current Visit: Yes Status: Chronic Qualifiers: Hypertension type: essential hypertension Qualified Code(s): I10 - Essential (primary) hypertension (6) GERD (gastroesophageal reflux disease) Current Visit: Yes Status: Suspected Qualifiers: Esophagitis presence: esophagitis presence not specified Qualified Code(s) : K21.9 - Gastro-esophageal reflux disease without esophagitis Discharge Plan: Home Plan to discharge in: 24 Hours - Code Status/Comfort Care Code Status Assessed: Yes Critical Care: No
--- NOTE | 2017-09-09 18:04 | RAD REPORT ---
EXAM DESCRIPTION: RAD - Small Bowel Series - 09/09/2017 5:51 pm CLINICAL HISTORY: GI bleed, anemia COMPARISON: CT imaging September 08 FINDINGS: Human Resources Director film shows air throughout the nondilated small bowel. Air is seen in nondilated colo n. No free air or pneumatosis. No suspicious calcifications. Gastric size and mucosal fold pattern are normal. No delay in transit of contrast into the small natasha l. Small bowel is normal in diameter with no mucosal fold thickening. No intrinsic or extrinsic mass identifiable. Terminal ileum has normal appearance. Transit time to the colon is 1.5 hours. IMPRESSION: Normal small bowel series. Transit time to the colon is 1.5 hours.
[2017-09-09] MEDS: ATORVASTATIN 80 MG TAB PO SCH (20:54)
[2017-09-10] MEDS: NA CHLORIDE 0.9% 1,000 ML IV SCH ×3 (01:43→23:29)
[2017-09-10] MEDS: INSULIN -REGULAR HUMAN 50 UNIT/0.5 ML ML SQ SCH ×4 (07:30→20:26)
[2017-09-10] MEDS: PANTOPRAZOLE 40 MG INJ IVP SCH ×2 (08:49→20:21)
[2017-09-10] MEDS: AMLODIPINE 5 MG TAB PO SCH (08:49)
[2017-09-10] MEDS: METOPROLOL TAR 25 MG TAB PO SCH ×3 (09:00→20:18)
[2017-09-10] MEDS ORDERED: HYDRALAZINE HCL 20 MG/ML VIAL IV PRN (11:35)
[2017-09-10 11:42] VITALS: O2SAT 98
--- NOTE | 2017-09-10 14:26 | P.PN ---
Subjective Date of Service: 09/10/17 Primary Care Provider: Dr. Ba; GI-[facility] Chief Complaint: lower GIB Patient seen and examined at bedside with RN. Chart reviewed. Case discussed with GI. S/p Colonoscopy at this time. Found to have several Polyps. F.u with GI today. Doing well overall. Review of Systems General: As per HPI Physical Examination - Vital Signs Temperature: 99.8 F Blood Pressure: 204/69 Pulse: 62 Respirations: 18 Pulse Ox (%): 100 - Physical Exam General: Alert, In no apparent distress, Oriented x3 HEENT: Atraumatic, PERRLA, EOMI Neck: Supple, JVD not distended Respiratory: Clear to auscultation bilaterally, Normal air movement Cardiovascular: Regular rate/rhythm, Normal S1 S2 Gastrointestinal: Normal bowel sounds, No tenderness Musculoskeletal: No tenderness Integumentary: No rashes Neurological: Normal speech, Normal tone, Normal affect Lymphatics: No axilla or inguinal lymphadenopathy - Studies Medications List Reviewed: Yes Assessment & Plan - Problems (Diagnosis) (1) Lower GI bleed Onset Date: 09/08/17 Current Visit: Yes Status: Acute Plan: Lower GI bleeding most likely secondary to -hemoglobin today is 10.1 -GI consulted. Appreciated recommendations at this time. -S/p Colonoscopy with findings: Several Polps and Ulcers. Possible Crohn's disease -Path pending. -Lab for Crohns collected -Small bowel series ordered -Capsule Endoscopy as OP (2) Acute renal injury Onset Date: 09/08/17 Current Visit: Yes Status: Acute Plan: Acute kidney injury secondary to hypovolemia. -IV fluids at this time. Continue to monitor closely. -BUN and creatinine improved today. 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: without correction use Diabetes mellitus complication status: with unspecified complications Qualified Code(s): E11.8 - Type 2 diabetes mellitus with unspecified complications (4) Hyperlipidemia Current Visit: Yes Status: Chronic Qualifiers: Hyperlipidemia type: unspecified Qualified Code(s): E78.5 - Hyperlipidemia , unspecified (5) Hypertension Current Visit: Yes Status: Chronic Qualifiers: Hypertension type: essential hypertension Qualified Code(s): I10 - Essential (primary) hypertension (6) GERD (gastroesophageal reflux disease) Current Visit: Yes Status: Suspected Qualifiers: Esophagitis presence: esophagitis presence not specified Qualified Code(s) : K21.9 - Gastro-esophageal reflux disease without esophagitis Discharge Plan: Home Plan to discharge in: 48 Hours - Code Status/Comfort Care Code Status Assessed: Yes Critical Care: No
[2017-09-10] MEDS: ATORVASTATIN 80 MG TAB PO SCH (20:20)
[2017-09-10] MEDS: MESALAMINE 500 MG CAPSULE.ER PO SCH (20:20)
--- NOTE | 2017-09-10 20:30 | RAD REPORT ---
EXAM DESCRIPTION: RAD - Small Bowel Series - 09/10/2017 7:19 pm CLINICAL HISTORY: Abdominal pain/ anemia COMPARISON: September 09, 2017 small bowel series FINDINGS: The auto body repair teacher film demonstrates contrast from a small bowel series September 09, 2017 within the co gin. On the current exam contrast enters the colon by approximately 1 hour 40 minutes. The mucosal folds of the small bowel appear normal. No permanent filling defects, obstructing or constricting lesions are seen. The small bowel caliber is normal. IMPRESSION: Unremarkable small bowel series.
[2017-09-11 04:04] VITALS: BMI 23.0
[2017-09-11 05:33] LABS: Absolute Lymphocytes (CBC) 1.4 K/uL (0.7-4.9); Absolute Monocytes 0.5 K/uL (0.1-1.3); Absolute Neutrophil 3.6 K/uL (1.8-8.0); Basophils % 0.6 % (0-1.3); Eosinophils % 4.7 % (0-4.4); Hematocrit 31.1 % (36.0-45.0); Lymphocytes % 24.6 % (15.3-44.8); MCH 28.9 pg (27.0-35.0); MCV 83.9 fL (80-100); MPV 8.7 fL (7.6-11.3); Monocytes % 8.1 % (3.3-12.3)
[2017-09-11 05:53] LABS: BUN Blood Urea Nitrogen 3 mg/dL (7-18); Bicarbonate 25 mmol/L (21-32); Glucose Level 108 mg/dL (74-106); Sodium Level 146 mmol/L (136-145)
[2017-09-11 05:54] LABS: Potassium 2.9 mmol/L (3.5-5.1)
[2017-09-11] MEDS: NA CHLORIDE 0.9% 1,000 ML IV SCH (06:00)
[2017-09-11] MEDS: KCL 20 MEQ/100 mL IVPB 20 MEQ/100 ML BAG IV SCH ×3 (06:30→14:30)
[2017-09-11] MEDS: INSULIN -REGULAR HUMAN 50 UNIT/0.5 ML ML SQ SCH ×2 (07:30→11:30)
[2017-09-11] MEDS ORDERED: AMLODIPINE 10 MG TAB PO SCH (09:00)
[2017-09-11] MEDS: MESALAMINE 500 MG CAPSULE.ER PO SCH (10:25)
[2017-09-11] MEDS: METOPROLOL TAR 25 MG TAB PO SCH (10:26)
[2017-09-11] MEDS: PANTOPRAZOLE 40 MG INJ IVP SCH (10:29)
[2017-09-11 13:15] VITALS: TEMP 97.7
[2017-09-11 15:37] VITALS: BP 160/76
--- NOTE | 2017-09-11 15:45 | P.DS ---
Admission Date: 09/08/17 Discharge Date: 09/11/17 Primary Care Provider: Dr. Ba; GI-[facility] Disposition: ROUTINE DISCHARGE Discharge Condition: GOOD Reason for Admission: lower GIB Consultations: GI - Dr Lin Procedures: Colonoscopy - Problems (1) Lower GI bleed Onset Date: 09/08/17 Current Visit: Yes Status: Acute (2) Acute renal injury Onset Date: 09/08/17 Current Visit: Yes Status: Acute (3) Diabetes mellitus Onset Date: 09/08/17 Current Visit: Yes Status: Chronic Qualifiers: Diabetes mellitus type: type 2 Diabetes mellitus terminal gauger insulin use: without terminal gauger use Diabetes mellitus complication status: with unspecified complications Qualified Code(s): E11.8 - Type 2 diabetes mellitus with unspecified complications (4) Hyperlipidemia Current Visit: Yes Status: Chronic Qualifiers: Hyperlipidemia type: unspecified Qualified Code(s): E78.5 - Hyperlipidemia , unspecified (5) Hypertension Current Visit: Yes Status: Chronic Qualifiers: Hypertension type: essential hypertension Qualified Code(s): I10 - Essential (primary) hypertension (6) GERD (gastroesophageal reflux disease) Current Visit: Yes Status: Suspected Qualifiers: Esophagitis presence: esophagitis presence not specified Qualified Code(s) : K21.9 - Gastro-esophageal reflux disease without esophagitis Brief History of Present Illness: Ms Perez is a 72-year-old woman with history of hypertension, dyslipidemia, noninsulin dependent diabetes mellitus, who about 3 weeks ago had a colonoscopy done at [facility], according to the patient, she had removed a polyp. As complication of colonoscopy, the patient had rectal bleeding, requiring another colonoscopy, without finding the source of bleeding. A third colonoscopy was done and finally a an area of bleeding was found, and after catheterizes it, the bleeding stopped. Unfortunately, about 2 days ago, she started bleeding again. She thought that it could be remnant from the last time she was bleeding , however this morning, she started feeling dizzy and weak, and subsequently came to ED for farther evaluation. She denied any chest pain or shortness of breath at this time. Laboratory work shows hemoglobin of 5.8 and hematocrit 17.6. BUN and creatinine are also elevated. Hospital Course: Overall during the hospital stay patient remained stay Patient was initially admitted to the hospital for recurrent rectal bleeding after colonoscopy that was done 3 times a [facility] 1 week ago. At that time patient was found to have rectal bleeding secondary to ulcers and polyps and was cauterized however that failed to control her bleeding and thus she return to the ER for further workup. Continuous GI bleed with failure to control bleeding even after colonoscopy x 3 at [facility] 1 week ago. Further pt with history of aortic aneurysm repair with HTN and Diabetes as comorbit condition. Putting her High Risk and making her appropriate for Inpatient Care on admission. Admission day 1: Pt had Serial H/h done, with coagulation w/u and type and screen. Pt also had ABD CT consistent with Diverticulosis. Pt hgb on admission was 5.8 on 09/08/17, She received Blood transfusion of 2 units and hgb was 7.4 and 8.2 however Down to 7.1 on 09/09/17 with continuous rectal bleeding. 2 more units transfused and Patient had GI consultation Day 2/3 of hospital Stay: Pt had colonoscopy done consistent with multiple large ulcers in the ascending, descending and sigmoid colon. Some bleeidng and some non bleeding. Some Cautarized as well. Pt also was found to have Polyps. Pt continued to have serial H/H and lab work. Rectal Bleeding still present but improving after colonoscopy. Pt continued on Protonix drip and monitoring for hemodynamic stability Day4: Pt hgb upto 10.2 with minimal rectal bleeding noted. Hydrodynamic stability achieved. Started on pentasa for possible crohns and protonix. Vital Signs/Physical Exam: Temp Pulse Resp BP Pulse Ox 97.7 F 59 18 160/76 H 98 09/11/17 12:00 09/11/17 12:00 09/11/17 12:00 09/11/17 15:34 09/11/17 12:00 General: Alert, In no apparent distress, Oriented x3 HEENT: Atraumatic, PERRLA, EOMI Neck: Supple, JVD not distended Respiratory: Clear to auscultation bilaterally, Normal air movement Cardiovascular: Regular rate/rhythm, Normal S1 S2 Gastrointestinal: Normal bowel sounds, No tenderness Musculoskeletal: No tenderness Integumentary: No rashes Neurological: Normal speech, Normal tone, Normal affect Lymphatics: No axilla or inguinal lymphadenopathy Laboratory Data at Discharge: WBC 5.8 K/uL (4.3-10.9) 09/11/17 04:56 Hgb 10.7 g/dL (12.0-15.0) L 09/11/17 04:56 Hct 31.1 % (36.0-45.0) L 09/11/17 04:56 Plt Count 207 K/uL (152-406) 09/11/17 04:56 PT 12.6 SECONDS (9.5-12.5) H 09/08/17 01:28 INR 1.07 09/08/17 01:28 Sodium 146 mmol/L (136-145) H 09/11/17 04:56 Potassium 2.9 mmol/L (3.5-5.1) L* 09/11/17 04:56 BUN 3 mg/dL (7-18) L 09/11/17 04:56 Creatinine 0.60 mg/dL (0.55-1.3) 09/11/17 04:56 Glucose 108 mg/dL (74-106) H 09/11/17 04:56 Magnesium 2.4 mg/dL (1.8-2.4) 09/09/17 06:08 Total Bilirubin 0.4 mg/dL (0.2-1.0) 09/09/17 06:08 AST 13 U/L (15-37) L 09/09/17 06:08 ALT 12 U/L (12-78) 09/09/17 06:08 Alkaline Phosphatase 52 U/L (45-117) 09/09/17 06:08 Lipase 82 U/L (73-393) 09/08/17 00:10 Home Medications: Amlodipine [Norvasc*] 5 mg PO DAILY 09/08/17 Atorvastatin Calcium [Lipitor] 80 mg PO BEDTIME 09/08/17 Cilostazol 100 mg PO DAILY 09/08/17 Docusate Sodium 100 mg PO BID 09/08/17 Levocetirizine Dihydrochloride [Xyzal] 5 mg PO DAILY 09/08/17 Metoprolol Tartrate [Lopressor*] 12.5 mg PO BID 09/08/17 Mesalamine [Pentasa*] 500 mg PO BID #60 capsule.er 09/11/17 Pantoprazole Sodium [Protonix] 40 mg PO DAILY #30 tablet. 09/11/17 New Medications: Mesalamine [Pentasa*] 500 mg PO BID #60 capsule.er Pantoprazole Sodium [Protonix] 40 mg PO DAILY #30 tablet. Patient Discharge Instructions: Please f.u with PCP and GI doc in 1 to 2 week post discharge. New medication. Pentasa 500mg BID Diet: Regular Activity: Ad ruby Followup: Michael Lin MD [ASSOCIATE-ACTIVE - CAN ADMIT] - 1-2 Weeks (call the office to make an appointment in 1-2 weeks for a pill cam colonscopy)
--- NOTE | 2017-09-11 18:55 | P.PN ---
Subjective Date of Service: 09/11/17 Primary Care Provider: Dr. Ba; GI-[facility] Chief Complaint: lower GIB Subjective: Improving (Feels better and no hematochezia.) Review of Systems 10-point ROS is otherwise unremarkable Physical Examination - Vital Signs Temperature: 97.7 F Blood Pressure: 160/76 Pulse: 59 Respirations: 18 Pulse Ox (%): 98 - Physical Exam General: Alert, In no apparent distress, Oriented x3, Cooperative HEENT: Atraumatic, Normocephalic, PERRLA, EOMI Neck: Supple Respiratory: Normal air movement Cardiovascular: Normal pulses Gastrointestinal: Soft and benign, No tenderness, No rebound, No guarding Musculoskeletal: No swelling Neurological: Normal speech, Normal strength at 5/5 x4 extr - Studies Medications List Reviewed: Yes Assessment And Plan - Current Problems (Diagnosis) (1) Hematochezia Status: Acute Comment: Probable Crohn's disease with serpiginous ulcers ~ 5 cm area in sigmoid colon and one in the ascending colon. (2) Acute blood loss anemia Onset Date: 09/08/17 Status: Acute - Plan REC:1) await [facility] serologies 2) Pentasa 4 tabs po bid 3) check viral hepatitis panel, TB test, and CXR -> done 4) consider biologic / immunomodulator therapy soon 5) GI clinic f/u 1-2 weeks
--- NOTE | 2017-09-15 03:03 | CON ---
Date of Consultation: 09/09/2017 Reason For Consultation: Hematochezia with a hemoglobin of 5.8. History Of Present Illness: Patient is a 72-year-old female with history of hypertension, h yperlipidemia, and diabetes. Patient presents to the hospital with hematochezia. Patient has had 3 colonoscopies in the past month at [facility] according to patient, stating that she has had a pos sible polyp or cyst or other. "She is not really sure what she has." Patient denies syncope though she has had bleeding. She has had some presyncope with dizziness and weakness, however. She denies any chest pain, shortness of breath, hematemesis, melena, hemoptysis, hematuria, dysuria, chronic vipin ydipsia. Past Medical History: Significant for diabetes, hypertension, hyperlipidemia, AAA repair, hernia kenji kelsi, cholecystectomy, appendectomy, and hernia repair. Social History: , 5 children. Tobacco, 5 cigarettes per day. Alcohol occasional. Family History: Father and mother of unknown causes. Review of Systems: The patient has hematochezia, presyncope with dizziness, 3 colonoscopies in the past month with a cys t or polyp or . The patient is unsure exactly what the etiology of her bleeding was and wh at the 3 colonoscopies really showed. She denies any melena, hematemesis, hemoptysis, hematuria, dys uria, chronic polydipsia, chest pain, shortness of breath, seizure, or syncope, though she did have p resyncope. No depression, anxiety. Physical Examination: Vital Signs: Patient is afebrile. Vital signs stable. She is 5 feet, pounds, BMI of 23 kg/m2. General: She is alert female, in no acute distress. HEENT: Normocephalic, atraumatic. Anicteric. Pupils equal, round, reactive to light. Extraocular movement intact. Oropharynx is clear. Neck: Supple. No mass. Respirations: Clear to auscultation bilaterally. Cardiac: Regular. Gastrointestinal: Positive bowel sounds. Soft, nontender, nondistended. No hepatosplenomegaly. Extremities: No clubbing, cyanosis, or edema. 2+ pulses. Neuro: Alert and oriented x3. Grossly nonfocal. 5/5 motor strength. Sensation intact to light deisi . Data: Patient has a white count of 5.7, hemoglobin of 7.1, hematocrit 20.8, MCV of 84, platelet coun t 193, polys of 68%, lymphocytes 22%, monocytes 3%, eosinophils 2%. PT of 12.6. INR of 1.1. Chemis try reveals a sodium 149, potassium 3.6, chloride 119, bicarb 23, BUN 17, creatinine of 0.7, glucose 116, calcium of 7.6. Magnesium 2.4. Total bili 0.4, AST 13, ALT of 12, alk phos 52, total protein 5 .4, albumin 2.7. TSH of 2.35. Lipase 82. UA was not done. CT revealed noncontrast study left-sided diverticulosis without diverticulitis, otherwise negative. Impression: Hematochezia. Hemoglobin 5.8 to 7.1 with transfusions. Had 3 colonoscopies in the past month at [facility]; unclear if she had a polyp, cyst, or other causes of bleeding. History of diabetes, hypertension, triple abdominal aortic aneurysm, hernia surgery, abdominal aortic aneurysm surgery with stent, cardiac surgery, cholecystectomy, appendectomy, and others per above. Recommendations: 1.Agree with packed RBCs now. We will like to check serial H and H and transfuse p.r.n. 2.Continue IV fluids. 3.Colonoscopy. STEPHANIE/JONE Voice ID: [id number] Report ID: [id number]
== END 2017-09-11 18:10 | disposition home or self-care (01) | DRG 386 ==
LOC: ER 23:32 → ERHOLD 09-08 02:05 → 4TH 09-08 04:02
PROVIDERS: ADMIT Internal Medicine; ATTEND Family Medicine
PROC: 30233N1 Transfusion of Nonautologous Red Blood Cells into Peripheral Vein, Percutaneous Approach (ICD-10-PCS; 2017-09-08)
PROC: 0DBP8ZZ Excision of Rectum, Via Natural or Artificial Opening Endoscopic (ICD-10-PCS; 2017-09-09)
PROC: 0DBK8ZX Excision of Ascending Colon, Via Natural or Artificial Opening Endoscopic, Diagnostic (ICD-10-PCS; 2017-09-09)
PROC: 0DBN8ZX Excision of Sigmoid Colon, Via Natural or Artificial Opening Endoscopic, Diagnostic (ICD-10-PCS; 2017-09-09)
PROC: 0DBP8ZX Excision of Rectum, Via Natural or Artificial Opening Endoscopic, Diagnostic (ICD-10-PCS; 2017-09-09)
PROC: 0DBF8ZX Excision of Right Large Intestine, Via Natural or Artificial Opening Endoscopic, Diagnostic (ICD-10-PCS; 2017-09-09)
PROC: 0DBG8ZX Excision of Left Large Intestine, Via Natural or Artificial Opening Endoscopic, Diagnostic (ICD-10-PCS; 2017-09-09)
PROC: 0DBB8ZX Excision of Ileum, Via Natural or Artificial Opening Endoscopic, Diagnostic (ICD-10-PCS; 2017-09-09)
PROC: 0DBK8ZZ Excision of Ascending Colon, Via Natural or Artificial Opening Endoscopic (ICD-10-PCS; principal; 2017-09-09 11:00)
DX: K50.111 Crohn's disease of large intestine with rectal bleeding (principal); D62 Acute posthemorrhagic anemia; N17.9 Acute kidney failure, unspecified; K63.3 Ulcer of intestine; K62.1 Rectal polyp; I10 Essential (primary) hypertension; E78.5 Hyperlipidemia, unspecified; K64.8 Other hemorrhoids; E11.9 Type 2 diabetes mellitus without complications; K21.9 Gastro-esophageal reflux disease without esophagitis; F17.210 Nicotine dependence, cigarettes, uncomplicated; Z86.010 Personal history of colon polyps; Z88.5 Allergy status to narcotic agent
CPT/HCPCS: 36415; 74176; 74250; 76377; 80048; 80053; 80076; 82962; 83036; 83690; 83735; 84439; 84443; 85014; 85018; 85025; 85610; 85652; 86021; 86850; 86900; 86901; 88305; 96361; 96374; 96375; 99285; C9113; J0360; J2001; J2405; J2765; J3010; J7030; P9016

== ENCOUNTER 2019-08-27 20:09 | Emergency (ER) | payer OTHER ==
--- OUTSIDE RECORDS SUMMARY | 2019-08-27 20:12 | XMS REPORT | Continuity of Care Document ---
:1945 Author Organization [facility] t Address [address] [place] [address] Care Team Providers Name Role Phone Nery URBINA Attending Clinician Problems Condition Condition Condition Status Onset Resolution Last Treating Co mments Source Name Details Category Date Date Treatment Clinician Date Peripheral Peripheral Diagnosis Active [facility] vascular vascular [facility] disease disease [facility] Essential Essential Diagnosis Active [facility] (primary[facility] (primary) [facility] - hypertensi hypertensi Me moria on on l [facility] Pure Pure Problem Active [facility] hyperchole hyperchole Dori kes - sterolemia sterolemia Me moria [facility] ent Clinics History of History of Problem Active [facility] diabetes diabetes [facility] - mellitus mellitus [facility] Sinus Sinus Problem Active [facility] problem problem [facility] - [facility] Renal mass Renal mass Problem Active [facility] Other Other Problem Active [facility] chronic chronic [facility] - pain pain [facility] Tobacco Tobacco Diagnosis [facility] abuse abuse [facility] - counseling counseling Me moria [facility] ent Clinics Chronic Chronic Diagnosis Active [facility] kidney kidney [facility] - disease disease Memoria (CKD) (CKD) l stage stage Outpati G2/A1, G2/A1, ent mildly mildly Clinics decreased decreased glomerular glomerular filtration filtration rate (GFR) rate (GFR) between between 60-89 60-89 mL/min/1.7 mL/min/1.7 3 square 3 square meter and meter and albuminuri albuminuri a a creatinine creatinine ratio less ratio less than 30 than 30 mg/g mg/g Diabetes 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 Clinician (SIG) Name Name Jardiance Jardiance 2019- No Paulo [address] [facility] 2-26 08-25 Yayo [facility] - 00:00: 00:00 [facility]oria 00 :00 l [facility] HydrOXYzine HydrOXYzine Yes Paulo [address] [facility] HCl HCl 1-04 Yayo as needed [facility] - 00:[facility]: [facility] 00 l [facility] Diclofenac Diclofenac 2017-02- No Paulo as [facility] Sodium Sodium 1-15 03-15 Yayo directed [facility] - 00:00: 00:00 [facility]oria 00 :00 l [facility] Mesalamine Mesalamine 2017-02 2018- No Paulo [address] [facility] ER ER 0-05 11-04 Yayo [facility] - 00:00: 00:00 [facility]oria 00 :00 l [facility] Vitamin D3 Vitamin D3 Yes Paulo [address] [facility] Yayo [facility]ics Pentasa Pentasa Yes Paulo [address] Yayo [facility] Atorvastati Atorvastati Yes Paulo [address] [facility] n Calcium n Calcium Yayo [facility] - [facility] Docusate Docusate Yes Paulo [address] [facility] Sodium Sodium Yayo as needed [facility] Fluticasone Fluticasone Yes Paulo [address] [facility] Propionate Propionate Yayo each Dori kes - nostril [facility] Amoxicillin Amoxicillin Yes Paulo [address] [facility] Yayo [facility] Centravites Centravites Yes Paulo as [facility] 50 Plus 50 Plus Yayo directed [facility] - [facility] Levocetiriz Levocetiriz Yes Paulo [address] [facility] ine ine Yayo in the [facility] - Dihydrochlo Dihydrochlo evening Memoria ride ride l [facility] Pantoprazol Pantoprazol Yes Paulo [address] [facility] e Sodium e Sodium Yayo [facility] Cilostazol Cilostazol Yes Paulo [address] [facility] Yayo [facility] Amlodipine Amlodipine Yes Paulo [address] [facility] Besylate Besylate Yayo [facility] Carvedilol Carvedilol Yes Paulo [address] [facility] Yayo with [facility] Lisinopril Lisinopril Yes Paulo [address] [facility] Yayo [facility] Acetaminoph Acetaminoph Yes Paulo [address] [facility] en en Yayo as needed [facility] Immunizations Ordered Filled Immunization Date Status Comments [facility] e Immunization Name Name PCV13 PCV13 2017-09-[address] [facility] 00[facility]00 [facility] Procedures This patient has no known procedures. Encounters Start End Encounter Admission Attending Care Care Encounter Source Date/Time Date/Time Type Type Clinicians Facility Department ID 2019-08-25 2019-08-25 Peter Gabriel [facility] [id number] 00:00:00 00:00:00 Management [place] [id number] Suzie [id number] [id number] [address] 2018-04-07 2018-04-07 Outpatient Christine Klein [id number] [facility] 08:30[facility]00 08:30:00 [facility] Medicine Medicine [facility] 2018-03-10 2018-03-10 Outpatient [place] [id number] 10:15:00 10:15:00 [facility] Medicine l Medicine [facility] 2018-02-13 2018-02-13 Outpatient Christine Kingt [id number] 09:30:00 09:30:00 t [facility] Medicine Outpati ent Clinics 2018-02-05 2018-02-05 [place] [id number] 09:30:00 09:30:00 t [facility] Medicine Outpati ent Clinics 2017-11-19 2017-11-19 Outpatient [place] [id number] [address] 15:42:00 15:42:00 t [facility] Medicine Outpati ent Clinics 2017-11-14 2017-11-14 [place] [id number] 09:47:00 09:47:00 t [facility] Medicine Outpati ent Clinics 2017-09-25 2017-09-25 Outpatient [place] [id number] [facility] 10:45:00 10:45:00 t [facility] Results This patient has no known results.
[2019-08-27] MEDS ORDERED: NA CHLORIDE 0.9% 1,000 ML ONE (21:51)
[2019-08-27 22:12] LABS: Absolute Lymphocytes (CBC) 1.5 K/uL (0.7-4.9); Basophils % 0.4 % (0-1.3); Hematocrit 26.7 % (36.0-45.0); Lymphocytes % 19.6 % (15.3-44.8); RBC Red Blood Cell Count 2.82 M/uL (3.86-4.86)
[2019-08-27 22:35] LABS: ALT/SGPT 15 U/L (12-78); AST/SGOT 13 U/L (15-37); Albumin 3.3 g/dL (3.4-5.0); Alkaline Phosphatase 64 U/L (45-117); BUN Blood Urea Nitrogen 31 mg/dL (7-18); Bicarbonate 22 mmol/L (21-32); Bilirubin Direct < 0.1 mg/dL (0-0.2); Bilirubin Total 0.4 mg/dL (0.2-1.0); Glucose Level 172 mg/dL (74-106); Lipase 80 U/L (73-393); Potassium 3.9 mmol/L (3.5-5.1); Protein, Total 6.3 g/dL (6.4-8.2); Sodium Level 141 mmol/L (136-145)
--- NOTE | 2019-08-27 23:48 | EDPHYS ---
Physician Documentation [facility] Name: Cici Perez Age: 74 yrs Sex: Female : 1945 Arrival Date: 08/27/2019 Time: 20:12 Bed 16 Private MD: ED Physician Johnathan Roman HPI: 08/26 21:38 This 74 yrs old Female presents to ER via Wheelchair with complaints of pkl Bleeding Ulcer. 21:38 The patient presents to the emergency department with rectal bleeding, melena. Onset: pkl The symptoms/episode began/occurred this morning. Associated signs and symptoms: Pertinent positives: weakness. The patient has experienced a previous episode, approximately 2 years ago, Needed blood transfusion. Historical: - Allergies: 20:21 Codeine; ll1 - Home Meds: 08/27 02:11 amlodipine 5 mg tab 1 tab once daily [Active]; aspirin 81 mg Oral chew 1 tab once daily sg [Active]; atorvastatin 80 mg Oral tab 1 tab nightly [Active]; cilostazol 100 mg Oral tab daily [Active]; docusate sodium 100 mg Oral cap 1 cap 2 times per day [Active]; levocetirizine 5 mg Oral tab 1 tab once daily [Active]; metoprolol tartrate 25 mg Oral tab 0.5 tab 2 times per day [Active]; - PMHx: 08/26 20:21 Diabetes - NIDDM; Hypertension; High Cholesterol; ll1 - PSHx: 20:21 Hernia repair; Aneurysm repair; Cholecystectomy; Appendectomy; ll1 - Immunization history:: Adult Immunizations up to date. - Social history:: Smoking status: Patient reports the use of cigarette tobacco products, smokes one-half pack cigarettes per day, Patient/guardian denies using alcohol, street drugs. ROS: 21:38 Eyes: Negative for injury, pain, redness, and discharge, ENT: Negative for injury, pkl pain, and discharge, Neck: Negative for injury, pain, and swelling, Cardiovascular: Negative for chest pain, palpitations, and edema, Respiratory: Negative for shortness of breath, cough, wheezing, and pleuritic chest pain. 21:38 Abdomen/GI: Positive for rectal bleeding. 21:38 Back: Negative for acute changes. 21:38 : Negative for urinary symptoms. 21:38 MS/extremity: Negative for acute changes. 21:38 Skin: Negative for rash. 21:38 Neuro: Negative for altered mental status. Exam: 21:38 Head/Face: Normocephalic, atraumatic. Eyes: Pupils equal round and reactive to light, pkl extra-ocular motions intact. Lids and lashes normal. Conjunctiva and sclera are non-icteric and not injected. Cornea within normal limits. Periorbital areas with no swelling, redness, or edema. ENT: Nares patent. No nasal discharge, no septal abnormalities noted. Tympanic membranes are normal and external auditory canals are clear. Oropharynx with no redness, swelling, or masses, exudates, or evidence of obstruction, uvula midline. Mucous membranes moist. Neck: Trachea midline, no thyromegaly or masses palpated, and no cervical lymphadenopathy. Supple, full range of motion without nuchal rigidity, or vertebral point tenderness. No Meningismus. Chest/axilla: Normal chest wall appearance and motion. Nontender with no deformity. No lesions are appreciated. Cardiovascular: Regular rate and rhythm with a normal S1 and S2. No gallops, murmurs, or rubs. Normal PMI, no JVD. No pulse deficits. Respiratory: Lungs have equal breath sounds bilaterally, clear to auscultation and percussion. No rales, rhonchi or wheezes noted. No increased work of breathing, no retractions or nasal flaring. 21:38 Abdomen/GI: Bowel sounds: normal, Palpation: abdomen is soft and non-tender, in all quadrants, Rectal exam: Stool: black, loose. 21:38 Back: Exam negative for acute changes. 21:38 : Exam negative for acute changes. pkl 21:38 Musculoskeletal/extremity: Exam is negative for acute changes. 21:38 Neuro: Orientation: is normal, Mentation: is normal, Memory: is normal, Cranial nerves: grossly normal, Motor: is normal. Vital Signs: 20:18 BP 107 / 58; Pulse 95; Resp 17; Temp 97.4; Pulse Ox 100% ; Pain 4/10; ll1 21:06 BP 112 / 58; Pulse 90; Resp 16; Pain 0/10; ks7 22:03 BP 142 / 59; Pulse 73; Resp 18; Pulse Ox 100% on R/A; Pain 0/10; ks7 22:45 BP 139 / 62; Pulse 75; Resp 18; Temp 97.5(O); Pulse Ox 100% on R/A; Pain 0/10; ks7 23:42 BP 138 / 74; Pulse 80; Resp 16; Temp 97.5; Pulse Ox 100% on R/A; sg 23:44 BP 138 / 74; Pulse 79; Resp 18; Temp 98.2(TE); Pulse Ox 100% ; Pain 0/10; ks7 MDM: 21:19 Patient medically screened. pkl 23:45 Data reviewed: vital signs, nurses notes, lab test result(s). pkl 08/26 21:37 Order name: Basic Metabolic Panel; Complete Time: 22:40 pkl 08/26 21:37 Order name: CBC with Diff; Complete Time: 22:35 pkl 08/26 21:37 Order name: Hepatic Function; Complete Time: 22:40 pkl 08/26 21:37 Order name: Lipase; Complete Time: 22:40 pkl 08/26 21:37 Order name: Type And Screen; Complete Time: 23:48 pkl 08/26 21:37 Order name: IV Saline Lock; Complete Time: 22:03 pkl 08/26 21:37 Order name: Labs collected and sent; Complete Time: 22:03 pkl Administered Medications: 21:58 Drug: NS 0.9% 500 ml Route: IV; Rate: bolus; Site: right forearm; ks7 21:58 Drug: NS 0.9% 1000 ml Route: IV; Rate: 125 ml/hr; Site: right forearm; ks7 Disposition: 08/27/19 23:47 Transfer ordered to [facility]. Diagnosis is G. I. Bleeding. - Reason for transfer: Higher level of care. - Accepting physician is Dr. Jen Rodriguez. - Condition is Stable. - Problem is new. - Symptoms are unchanged. Signatures: Dispatcher [employer] EDGalen Simons RN RN sg Johnathan Roman MD MD pkl Lewis, Lynsay, RN RN ll1 Delphine Funes RN RN ks7 Corrections: (The following items were deleted from the chart) 08/27 01:19 08/26 23:47 08/27/2019 23:47 Transfer ordered to [facility]. sg Diagnosis is G. I. Bleeding. Reason for transfer: Higher level of care. Accepting physician is Dr. Jen Rodriguez. Condition is Stable. Problem is new. Symptoms are unchanged. pkl
--- NOTE | 2019-08-27 23:48 | ER ---
Nurse's Notes [facility] Name: Cici Perez Age: 74 yrs Sex: Female : 1945 Arrival Date: 08/27/2019 Time: 20:12 Bed 16 Private MD: Diagnosis: G. I. Bleeding Presentation: 08/26 20:18 Chief complaint: Patient states: Blood in stool today. Started cipro and flagyl today. ll1 Started taking cilostazol for 1 week, abdomen is feeling worse. Had bleeding ulcer 2 years ago and had blood transfusion. Coronavirus screen: Patient denies a cough. Patient denies shortness of breath or difficulty breathing. Patient denies measured and/or subjective temperature greater than 100.4F prior to today's visit. Patient denies travel on a cruise ship or to a country the [facility] currently lists as an affected area. Patient denies contact with known and/or suspected case of COVID-19. Proceed with normal triage. Ebola Screen: Patient denies travel to an Ebola-affected area in the 21 days before illness onset. Initial Sepsis Screen: Does the patient meet any 2 criteria? No. Patient's initial sepsis screen is negative. Risk Assessment: Do you want to hurt yourself or someone else? Patient reports no desire to harm self or others. Onset of symptoms was August 27, 2019. 20:18 Method Of Arrival: Wheelchair ll1 20:18 Acuity: SANDIE 3 ll1 Triage Assessment: 21:06 General: Appears in no apparent distress. uncomfortable, Behavior is calm, cooperative. ks7 Pain: Complains of pain in buttocks and abdomen Pain at worst was 8 out of 10 on a pain scale. Quality of pain is described as crampy. Historical: - Allergies: 20:21 Codeine; ll1 - Home Meds: 08/27 02:11 amlodipine 5 mg tab 1 tab once daily [Active]; aspirin 81 mg Oral chew 1 tab once daily sg [Active]; atorvastatin 80 mg Oral tab 1 tab nightly [Active]; cilostazol 100 mg Oral tab daily [Active]; docusate sodium 100 mg Oral cap 1 cap 2 times per day [Active]; levocetirizine 5 mg Oral tab 1 tab once daily [Active]; metoprolol tartrate 25 mg Oral tab 0.5 tab 2 times per day [Active]; - PMHx: 08/26 20:21 Diabetes - NIDDM; Hypertension; High Cholesterol; ll1 - PSHx: 20:21 Hernia repair; Aneurysm repair; Cholecystectomy; Appendectomy; ll1 - Immunization history:: Adult Immunizations up to date. - Social history:: Smoking status: Patient reports the use of cigarette tobacco products, smokes one-half pack cigarettes per day, Patient/guardian denies using alcohol, street drugs. Screenin:08 Abuse screen: Denies threats or abuse. Nutritional screening: No deficits noted. ks7 Tuberculosis screening: No symptoms or risk factors identified. Fall Risk No fall in past 12 months (0 pts). Secondary diagnosis (15 points) IV access (20 points). Ambulatory Aid- None/Bed Rest/Nurse Assist (0 pts). Gait- Weak (10 pts.). Mental Status- Oriented to own ability (0 pts). Assessment: 21:08 General: Reports pt comes in from home. hx of bleeding ulcers. pt states she has had ks7 BRB from rectum starting this morning. pt called her MD, who told her to come to ED if bleeding continues. pt also states she feels weak and light headed. aaox4, denies pain at this time. 22:01 General: blood band #[id number]. ks7 22:03 Reassessment: Patient is alert, oriented x 3, equal unlabored respirations, skin ks7 warm/dry/pink. 23:05 Reassessment: MD at bedside updating pt on plan of care, transfer to [place]. Pt ks7 anxious, upset, does not want to transfer, states " i want to go home. I dont have anyone who can pick me up in [place]." Notified pt wants to AMA. 23:12 Reassessment: pt called family on phone. pt decided to transfer to [place]. notified .ks7 23:45 Reassessment: Pt stable, anxious about going to [place] because of all the [place] Virus ks7 there. Reassured pt that hospitals usually put covid + pt on separate wings. Pt would rather go to [place]. Resting in room. 08/27 00:09 Reassessment: Patient is alert, oriented x 3, equal unlabored respirations, skin ks7 warm/dry/pink. pt states she will go to [place]. Notified turn out worker and Abstract Checker. 00:22 Reassessment: Called report to Jayna HAWLEY at [facility]. All questions answered. ks7 00:25 Reassessment: handoff report to Yoli HAWLEY. ks7 Vital Signs: 08/26 20:18 BP 107 / 58; Pulse 95; Resp 17; Temp 97.4; Pulse Ox 100% ; Pain 4/10; ll1 21:06 BP 112 / 58; Pulse 90; Resp 16; Pain 0/10; ks7 22:03 BP 142 / 59; Pulse 73; Resp 18; Pulse Ox 100% on R/A; Pain 0/10; ks7 22:45 BP 139 / 62; Pulse 75; Resp 18; Temp 97.5(O); Pulse Ox 100% on R/A; Pain 0/10; ks7 23:42 BP 138 / 74; Pulse 80; Resp 16; Temp 97.5; Pulse Ox 100% on R/A; sg 23:44 BP 138 / 74; Pulse 79; Resp 18; Temp 98.2(TE); Pulse Ox 100% ; Pain 0/10; ks7 ED Course: 20:12 Patient arrived in ED. ag3 20:20 Triage completed. ll1 20:21 Arm band placed on Patient placed in an exam room, on a stretcher. ll1 20:37 Delphine Funes, RN is Primary Nurse. ks7 21:08 Patient has correct armband on for positive identification. Placed in gown. Bed in low ks7 position. Call light in reach. Side rails up X2. 21:08 No provider procedures requiring assistance completed. ks7 21:19 Johnathan Roman MD is Attending Physician. pkl 22:00 Inserted saline lock: 20 gauge in right forearm, using aseptic technique. Blood ks7 collected. 22:02 Type And Screen Sent. ks7 22:03 Basic Metabolic Panel Sent. ks7 22:03 CBC with Diff Sent. ks7 22:03 Hepatic Function Sent. ks7 22:03 Lipase Sent. ks7 08/27 00:03 pt ambulated to bathroom > 25 feet, SBA only. pt able to ambulate back from bathroom ks7 independently. denies pain or dizziness. pt states she only had little spots of BRB when going to bathroom. Now trying to decide if she wants to transfer. Administered Medications: 08/26 21:58 Drug: NS 0.9% 500 ml Route: IV; Rate: bolus; Site: right forearm; ks7 21:58 Drug: NS 0.9% 1000 ml Route: IV; Rate: 125 ml/hr; Site: right forearm; ks7 Outcome: 23:47 ER care complete, transfer ordered by . malou 08/27 01:19 Patient left the ED. sg Signatures: Galen Syed RN RN sg Lam, Pin, MD MD pkKeri Moses ag3 Sarai Mccall RN RN ll1 Delphine Funes RN RN ks7
[2019-08-28 01:58] VITALS: O2SAT 100
[2019-08-28 02:04] VITALS: BP 138/74
[2019-08-28 02:06] VITALS: TEMP 98.2
== END 2019-08-28 01:19 | disposition short-term general hospital (02) ==
LOC: ER 20:09
DX: K92.2 Gastrointestinal hemorrhage, unspecified (principal); I10 Essential (primary) hypertension; E11.9 Type 2 diabetes mellitus without complications; E78.00 Pure hypercholesterolemia, unspecified; Z79.82 Long term (current) use of aspirin; Z88.5 Allergy status to narcotic agent; F17.210 Nicotine dependence, cigarettes, uncomplicated
CPT/HCPCS: 85025 ×2; 80048; 36415 ×2; 86900; 86850; 86901; 80076; 82728; 83690; 83540; 84466; 99284; J7030